=== PATIENT | male | born 1990 | race Caucasian/White ===

== ENCOUNTER 2018-07-22 10:39 | Emergency (ER) | payer OTHER ==
[~2018-07-22] VITALS: Ht 185.4 cm; Wt 68.0 kg
[2018-07-22 11:02] LABS: ABSOLUTE EOSINOPHILS 0.2 thou/uL (0.0-0.7); ABSOLUTE LYMPHOCYTES 1.5 thou/uL (0.8-5.3); ABSOLUTE MONOCYTES 1.7 thou/uL (0.0-1.2); ABSOLUTE NEUTROPHILS 11.2 thou/uL (1.6-8.1); BASOPHILS 0.3 %; EOSINOPHILS 1.1 %; HEMOGLOBIN 15.6 gm/dL (14.0-18.0); LYMPHOCYTES 10.4 %; MCH 29.8 pg (26.0-34.0); MCHC 33.3 g/dL (28.0-37.0); MCV 89.6 fL (80.0-100.0); MONOCYTES 11.9 %; MPV 8.7 fl. (7.2-11.1); NUCLEATED RBCS 0 /100WBC; PLATELET COUNT* 225 thou/uL (150-400); POLYS 76.3 %; RBC 5.24 mil/uL (4.50-6.00); RDW-CV 13.5 % (10.5-14.5); WBC 14.7 thou/uL (4.0-11.0)
[2018-07-22 11:15] LABS: ANION GAP 8 mmol/L (7-16); BUN 11 mg/dL (7-18); CALCIUM 9.5 mg/dL (8.5-10.1); CHLORIDE 100 mmol/L (98-107); CO2 29 mmol/L (21-32); CREATININE 0.9 mg/dL (0.6-1.3); GLUCOSE 99 mg/dL (70-99); POTASSIUM 4.3 mmol/L (3.5-5.1); SODIUM 137 mmol/L (136-145)
[2018-07-22 11:22] LABS: ALBUMIN 4.2 g/dL (3.4-5.0); ALKALINE PHOSPHATASE 111 U/L (46-116); LIPASE 90 U/L (73-393); SGOT 11 U/L (15-37); SGPT 24 U/L (30-65); TOTAL PROTEIN 8.2 g/dL (6.4-8.2); TROPONIN-I LEVEL <0.06 ng/mL (<0.06)
[2018-07-22] MEDS ORDERED: PEPCID20 MG PO (11:28)
[2018-07-22] MEDS ORDERED: CARAFATE 1 GM TA1 G1 PO (11:28)
[2018-07-22 11:35] VITALS: BP 121/80
--- NOTE | 2018-07-23 17:50 | EKG ---
[place] [address] ELECTROCARDIOGRAM REPORT Name: HOANG CAI Room: [facility]#: [id number] Admission: 07/22/18 Attend Phys: Discharge: 07/22/18 Date of : [birth year] Report #: [id number] THIS REPORT FOR: //name// [facility] ED Test Date: 2018-07-22 Test Time: 10:53:47 Pat Name: HOANG CAI Department: Room: Gender: White [employer]: Ted HOLCOMB : 1990 Requested By: Bienvenido Jensen Order Number: [id number] MD: Hoang Ornelas Measurements Intervals [place] Rate: 80 P: 78 MD: 141 QRS: 78 QRSD: 67 T: 37 QT: 324 QTc: 374 Interpretive Statements Sinus rhythm No previous ECG available for comparison Electronically Signed On 07-23-2018 17:50:18 CDT by Hoang Ornelas [email or web address] <ELECTRONICALLY SIGNED> By: Hoang Ornelas MD, [facility] 07/23/18 1750 1053 1053 Hoang Ornelas MD, FACC /EPI
== END 2018-07-22 11:35 | disposition home or self-care (01) ==
LOC: M.ERS 10:39
PROVIDERS: Emergency Medicine Emergency Medical Services
DX: K29.70 Gastritis, unspecified, without bleeding (principal)